=== PATIENT | male | born 1935 | race Caucasian/White ===

== ENCOUNTER → 2017-08-19 06:47 | Emergency (ER) | payer MEDICARE ==
[~2017-08-19 06:47] MED LIST: Dexamethasone IV* 4 MG/ML 1 ML (4 MG) IV SLOW PU ONE; HYDROcodone/ACETAMIN 5-325 MG* 1 TAB PO ONE; NS 0.9% 1000 ML* 500 ML IV ONE
[2017-08-19 06:52] VITALS: BP 132/82
[2017-08-19 08:15] LABS: Hematocrit 43 % (42-52); Hemoglobin 14.9 g/dl (14.0-18.0); Mean Corpuscular HGB Conc 35 g/dl (31-36); Mean Corpuscular Hemoglobin 32 pg (27-31); Mean Corpuscular Volume 94 fL (80-94); Mean Platelet Volume 9 um3 (7.4-10.4); Red Blood Count 4.63 10^6/ul (4.0-5.4); Red Cell Distribution Width 14 % (10.5-15)
--- NOTE | 2017-08-19 08:23 | RAD ---
Indication: LEFT ankle and foot pain post fall 5 days ago. History of gout. Comparison: No relevant prior exams available on the [facility] PACS for comparison. Technique: AP and lateral views LEFT ankle. AP, lateral, and oblique views LEFT foot. Report: Negative for fracture or dislocation. Normal articular alignment at the ankle and foot. Periarticular osseous erosion at the medial margin of the head of the first metatarsal with mild overlying soft tissue swelling corresponding with history of gout. Peripheral vascular calcifications. Mild nonfocal soft tissue swelling about the ankle and foot. IMPRESSION: 1. Negative for fracture or articular malalignment. 2. 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 3. Peripheral vascular disease. 4. Nonspecific nonfocal mild soft tissue swelling.
--- NOTE | 2017-08-19 08:23 | RAD ---
Indication: LEFT ankle and foot pain post fall 5 days ago. History of gout. Comparison: No relevant prior exams available on the [facility] PACS for comparison. Technique: AP and lateral views LEFT ankle. AP, lateral, and oblique views LEFT foot. Report: Negative for fracture or dislocation. Normal articular alignment at the ankle and foot. Periarticular osseous erosion at the medial margin of the head of the first metatarsal with mild overlying soft tissue swelling corresponding with history of gout. Peripheral vascular calcifications. Mild nonfocal soft tissue swelling about the ankle and foot. IMPRESSION: 1. Negative for fracture or articular malalignment. 2. 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 3. Peripheral vascular disease. 4. Nonspecific nonfocal mild soft tissue swelling.
[2017-08-19 08:34] LABS: Albumin 3.6 g/dL (3.2-5.2); BUN/Creatinine Ratio 15.8 (8-20); C Reactive Protein 121.46 mg/L (< 5.00); EGFR African American 74.5 (>60); Globulin 3.6 g/dL (2-4); Potassium 4.1 mmol/L (3.5-5.0); Total Protein 7.2 g/dL (6.4-8.9)
--- NOTE | 2017-08-20 18:47 | ED ---
Abdi Vela Thomas, scribed for Ronen Ch MD on 08/19/17 at 0741 . Complex/Multi-Sys Presentation - HPI Summary HPI Summary: The pt is a 82 y/o M presenting to the ED c/o s/p a fall that occurred today at 03:30. The patient was walking to his kitchen when he had an accidental fall described as both knees gave out. He denies head trauma, head pain, neck pain , and LOC. Pt additionally c/o a L foot pain (since four days ago and attributed to gout) and a cough. The pain is aggravated by touch and is alleviated by nothing. The patient has treated the pain with nothing [employer]. The patient uses a walker and cane to get around. - History Of Current Complaint Chief Complaint: EDExtremityLower Time Seen by Provider: 08/19/17 07:20 Hx Obtained From: Patient Onset/Duration: Sudden Onset, Lasting Hours - onset of pain today at 03:30, Still Present Character: Unable To Describe - similar to previous episodes of gout Aggravating Factor(s): Touch Alleviating Factor(s): Nothing Associated Signs And Symptoms: Positive: Other - Fall, L foot pain; NEGATIVE: head trauma, head pain, neck pain, LOC Related History: Other - Accidental fall today at 03:30 PMH/Surg Hx/FS Hx/Imm Hx Previously Healthy: No - Hx Gout Endocrine/Hematology History: Reports: Other Endocrine/Hematological Disorders Cardiovascular History: Reports: Hx Hypertension, Hx Myocardial Infarction - Surgical History Surgery Procedure, Year, and Place: coronary stent, ICD Infectious Disease History: No Infectious Disease History: Denies: Traveled Outside the [place] in Last 30 Days - Family History Known Family History: Positive: Other - Gout - Social History Alcohol Use: None Hx Substance Use: Yes Substance Use Type: Reports: Prescribed Hx Tobacco Use: Yes Smoking Status (MU): Former Smoker Review of Systems Negative: Fever Positive: Other - L foot pain (onset s/p fall today at 03:30); NEGATIVE: neck pain Neurological: Other - NEGATIVE: LOC, head trauma All Other Systems Reviewed And Are Negative: Yes Physical Exam - Summary Physical Exam Summary: VITAL SIGNS: Reviewed. GENERAL: Patient is a well-developed and nourished male who is lying comfortable in the stretcher. Patient is not in any acute respiratory distress. HEAD AND FACE: No signs of trauma. No ecchymosis, hematomas or skull depressions. No sinus tenderness. EYES: PERRLA, EOMI x 2, No injected conjunctiva, no nystagmus. EARS: Hearing grossly intact. Ear canals and tympanic membranes are within normal limits. MOUTH: Oropharynx within normal limits. NECK: Supple, trachea is midline, no adenopathy, no JVD, no carotid bruit, no c- spine tenderness, neck with full ROM. CHEST: Symmetric, no tenderness at palpation LUNGS: Clear to auscultation bilaterally. No wheezing or crackles. CVS: Regular rate and rhythm, S1 and S2 present, no murmurs or gallops appreciated. ABDOMEN: Soft, non-tender. No signs of distention. No rebound no guarding, and no masses palpated. Bowel sounds are normal. EXTREMITIES: FROM in all major joints, no cyanosis or clubbing. There is LLE swelling and pain. There is point tenderness in the left first metatarsal. NEURO: Alert and oriented x 3. No acute neurological deficits. Speech is normal and follows commands. SKIN: Dry and warm. 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 Triage Information Reviewed: Yes Vital Signs On Initial Exam: Initial Vitals Temp Pulse Resp BP Pulse Ox 97.8 F 82 20 132/82 100 08/19/17 06:49 08/19/17 06:49 08/19/17 06:49 08/19/17 06:49 08/19/17 06:49 Vital Signs Reviewed: Yes - [place] Coma Scale Coma Scale Total: 15 Diagnostics - Vital Signs Vital Signs Temp Pulse Resp BP Pulse Ox 08/19/17 06:49 97.8 F 82 20 132/82 100 - Laboratory Result Diagrams: 08/19/17 08:00 08/19/17 08:00 Lab Statement: Any lab studies that have been ordered have been reviewed, and results considered in the medical decision making process. - Radiology Foot XR Xray Interpretation: No Acute Changes - Foot XR 1. Negative for fracture or articular malalignment. 2. 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 3. Peripheral vascular disease. 4. Nonspecific nonfocal mild soft tissue swelling. ED physician has reviewed this report and agrees. Radiology Interpretation Completed By: Radiologist Ankle XR Xray Interpretation: No Acute Changes - Ankle XR 1. Negative for fracture or articular malalignment. 2. 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 3. Peripheral vascular disease. 4. Nonspecific nonfocal mild soft tissue swelling. ED physician has reviewed this report and agrees. Radiology Interpretation Completed By: Radiologist Jose Multi-Symp Course/Dx Assessment/Plan: The pt is a 82 y/o M presenting to the ED c/o s/p a fall that occurred today at 03:30. The patient was walking to his kitchen when he had an accidental fall described as both knees gave out. He denies head trauma, head pain, neck pain, and LOC. Pt additionally c/o a L foot pain (since four days ago and attributed to gout) and a cough. The pain is aggravated by touch and is alleviated by nothing. The patient has treated the pain with nothing [employer]. The patient uses a walker and cane to get around. Test results are without significant abnormality except WBC 12, creatinine 1.2, and CRP 121. Foot and Ankle XR shows 1. Negative for fracture or articular malalignment. 2. 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 3. Peripheral vascular disease. 4. Nonspecific nonfocal mild soft tissue swelling. ED physician has reviewed these reports and agrees. Therefore, I believe the patient is having a gout exacerbation. I have low suspicion for infection. I gave the patient Decadron and [place] and the patients pain decreased to 1/10. The patient is able to ambulate. At this point, I discussed the test results and findings with the patient and the need to follow up with primary care. The patient is hemodynamically stable and alert and oriented x 3. - Diagnoses Provider Diagnoses: Exacerbation of gout Discharge - Discharge Plan Condition: Stable Disposition: HOME Prescriptions: methylPREDNISolone TAB* [Medrol TAB*] 4 mg PO DAILY #1 gareth Patient Education Materials: Gout (ED) Referrals: Pieter Pagan MD [Primary Care Provider] - 3 Days Additional Instructions: Follow up with your primary care provider in 2-3 days. Return to the emergency department for any new or worsening symptoms. The documentation as recorded by the Abdi harding Thomas accurately reflects the service I personally performed and the decisions made by , Ronen Ch MD.
== END | disposition home or self-care (01) ==
LOC: ED 06:47
DX: M10.9 Gout, unspecified (principal); M79.672 Pain in left foot; R05 Cough; Z87.891 Personal history of nicotine dependence
CPT/HCPCS: 36415; 80053; 85025; 86140; 96374; 99282; J1100

== ENCOUNTER 2021-08-24 10:31 | Inpatient (IN) ==
[2021-08-24] MEDS ORDERED: Morphine 4 MG/ML VIAL (1 ml) IV ONE ×3 (10:57→13:57)
[2021-08-24] MEDS: Lactated Ringers 1000 ml BAG 1,000 ML IV SCH (11:05)
[2021-08-24] MEDS ORDERED: Morphine 2 MG/ML SYRINGE IV ONE (12:08)
[2021-08-24 12:38] LABS: ABS Basophils 0.1 10^3/ul (0-0.2); ABS Eosinophils 0.1 10^3/ul (0-0.6); ABS Monocytes 0.6 10^3/ul (0-0.8); ABS Neutrophils 8.3 10^3/ul (1.5-7.7); Eosinophil % 0.9 %; Hematocrit 40 % (42-52); Hemoglobin 13.9 g/dL (14.0-18.0); Mean Corpuscular HGB Conc 35 g/dL (31-36); Mean Corpuscular Hemoglobin 32 pg (27-31); Mean Corpuscular Volume 92 fL (80-94); Mean Platelet Volume 9.2 fL (7.4-10.4); Nucleated Red Blood Cells % 0.1; Platelet Count 154 10^3/uL (150-450); Red Blood Count 4.39 10^6 /uL (4.18-5.48); Red Cell Distribution Width 16 % (10-15)
[2021-08-24 12:57] LABS: ALT 13 U/L (7-52); Albumin 3.7 g/dL (3.2-5.2); Albumin/Globulin Ratio 1.3 (1-3); Alkaline Phosphatase 78 U/L (35-149); Blood Urea Nitrogen 21 mg/dL (6-24); CO2 Carbon Dioxide 26 mmol/L (22-32); Calcium 9.1 mg/dL (8.6-10.3); Chloride 100 mmol/L (101-111); Globulin 2.8 g/dL (2-4); Glucose 117 mg/dL (70-100); Sodium 133 mmol/L (135-145); Total Protein 6.5 g/dL (6.4-8.9)
[2021-08-24 13:05] LABS: Troponin I 0.13 ng/mL (<0.03)
[2021-08-24 13:21] LABS: Anion Gap 7 mmol/L (2-11)
[2021-08-24 13:39] LABS: TSH Ultra Thyroid Stim Horm 1.69 mcIU/mL (0.34-5.60)
[2021-08-24 14:12] LABS: Rapid COVID-19 Molecular Undetected (Undetected)
[2021-08-24] MEDS: Carboxymethylcellulos 1% OPTH 1 AMP BOTH EYES SCH ×2 (18:04→23:30)
[2021-08-24] MEDS: Morphine 2 MG/ML SYRINGE IV PRN (18:38)
[2021-08-24 19:32] LABS: Potassium Redraw 4.6 mmol/L (3.5-5.0)
[2021-08-24 19:39] LABS: Troponin I 0.21 ng/mL (<0.03)
[2021-08-24] MEDS ORDERED: Enoxaparin 80 MG/0.8 ML SYR SUBCUT SCH (20:00)
[2021-08-24 22:19] LABS: Troponin I 0.23 ng/mL (<0.03)
[2021-08-25] MEDS: Morphine 2 MG/ML SYRINGE IV PRN ×3 (00:06→08:30)
[2021-08-25] MEDS: Lactated Ringers 1000 ml BAG 1,000 ML IV SCH ×2 (00:15→08:25)
[2021-08-25 01:45] LABS: Troponin I 0.25 ng/mL (<0.03)
[2021-08-25] MEDS: CROMOLYN INTRANASAL SCH ×2 (03:22→10:06)
[2021-08-25] MEDS: Enoxaparin 80 MG/0.8 ML SYR SUBCUT SCH ×2 (04:42→17:48)
[2021-08-25 05:37] LABS: Troponin I 0.25 ng/mL (<0.03)
[2021-08-25 06:07] LABS: Anion Gap 7 mmol/L (2-11); Blood Urea Nitrogen 20 mg/dL (6-24); CO2 Carbon Dioxide 26 mmol/L (22-32); Calcium 8.6 mg/dL (8.6-10.3); Chloride 101 mmol/L (101-111); Glucose 142 mg/dL (70-100); Potassium 4.6 mmol/L (3.5-5.0); Sodium 134 mmol/L (135-145)
[2021-08-25] MEDS: Carboxymethylcellulos 1% OPTH 1 AMP BOTH EYES SCH ×2 (10:03→13:37)
[2021-08-25] MEDS: Cholecalciferol (VIT D3) 1,000 unit TAB PO SCH (10:04)
[2021-08-25] MEDS ORDERED: Acetaminophen IV 1 GM/100ML 100 ML IV PRN (11:09)
[2021-08-25 11:44] LABS: Urine Appearance Clear; Urine Bilirubin Negative (Negative); Urine Blood Negative (Negative); Urine Color Yellow; Urine Glucose Negative (Negative); Urine Ketones Negative (Negative); Urine Nitrite Negative (Negative); Urine Protein Negative (Negative); Urine Specific Gravity 1.012 (1.002-1.030); Urine Urobilinogen Negative (Negative)
[2021-08-25 12:39] LABS: INR 1.6 (0.86-1.15)
[2021-08-25] MEDS: Dextran 70/Hypromellose Tears Eye Drops 15 ml BTL (for Artificials Tears) BOTH EYES SCH ×2 (17:51→22:16)
[2021-08-26] MEDS: CROMOLYN INTRANASAL SCH ×3 (02:21→23:27)
[2021-08-26] MEDS: Enoxaparin 80 MG/0.8 ML SYR SUBCUT SCH ×2 (07:52→17:31)
[2021-08-26] MEDS: Dextran 70/Hypromellose Tears Eye Drops 15 ml BTL (for Artificials Tears) BOTH EYES SCH ×4 (08:39→23:26)
[2021-08-26] MEDS: Cholecalciferol (VIT D3) 1,000 unit TAB PO SCH (08:40)
[2021-08-26 08:46] LABS: Calcium 9.1 mg/dL (8.6-10.3); Potassium 4.3 mmol/L (3.5-5.0)
[2021-08-26 08:53] LABS: Hematocrit 39 % (42-52); Hemoglobin 13.5 g/dL (14.0-18.0); Mean Corpuscular HGB Conc 34 g/dL (31-36); Mean Corpuscular Hemoglobin 32 pg (27-31); Mean Corpuscular Volume 92 fL (80-94); Mean Platelet Volume 9.9 fL (7.4-10.4); Platelet Count 126 10^3/uL (150-450); Red Blood Count 4.23 10^6 /uL (4.18-5.48); Red Cell Distribution Width 17 % (10-15); White Blood Count 10.5 10^3/uL (3.5-10.8)
[2021-08-27] MEDS: Enoxaparin 80 MG/0.8 ML SYR SUBCUT SCH ×2 (05:27→18:38)
[2021-08-27 07:28] LABS: ABS Eosinophils 0.2 10^3/ul (0-0.6); ABS Lymphocytes 0.8 10^3/ul (1.0-4.8); ABS Monocytes 1.1 10^3/ul (0-0.8); ABS Neutrophils 6.6 10^3/ul (1.5-7.7); Eosinophil % 2.8 %; Hematocrit 34 % (42-52); Hemoglobin 11.9 g/dL (14.0-18.0); Lymphocyte % 8.6 %; Mean Corpuscular HGB Conc 35 g/dL (31-36); Mean Corpuscular Hemoglobin 32 pg (27-31); Mean Corpuscular Volume 92 fL (80-94); Mean Platelet Volume 9.5 fL (7.4-10.4); Platelet Count 112 10^3/uL (150-450); Red Blood Count 3.71 10^6 /uL (4.18-5.48); Red Cell Distribution Width 17 % (10-15); White Blood Count 8.7 10^3/uL (3.5-10.8)
[2021-08-27 07:34] LABS: INR 1.49 (0.86-1.15)
[2021-08-27 07:38] LABS: Calcium 8.3 mg/dL (8.6-10.3); Potassium 4.4 mmol/L (3.5-5.0)
[2021-08-27] MEDS: Morphine 2 MG/ML SYRINGE IV PRN ×3 (07:55→22:32)
[2021-08-27] MEDS ORDERED: Polyethylene Glycol 3350 17 GM PACKET PO PRN (08:38)
[2021-08-27] MEDS ORDERED: Magnesium Hydroxide LIQ 30 ML UDC PO ONE (08:39)
[2021-08-27] MEDS: Dextrose 50% Syringe 50 ml 25 GM/50 ML SYRINGE IV PUSH PRN (09:55)
[2021-08-27] MEDS: Cholecalciferol (VIT D3) 1,000 unit TAB PO SCH (12:32)
[2021-08-27] MEDS: CROMOLYN INTRANASAL SCH ×2 (12:32→22:34)
[2021-08-27] MEDS ORDERED: Regadenoson 0.4 MG/5 ML SYRINGE ONE (14:01)
[2021-08-27] MEDS: Dextran 70/Hypromellose Tears Eye Drops 15 ml BTL (for Artificials Tears) BOTH EYES SCH ×3 (14:39→22:34)
[2021-08-27] MEDS ORDERED: cefTRIAXone 1 gm/50 mL NS BAG 1 GM/50 ML BAG IV ONE (16:23)
[2021-08-27] MEDS ORDERED: Azithromycin 500 mg/250 ml NS 500 MG/250 ML BAG IVPB ONE (16:23)
[2021-08-28 05:51] LABS: ABS Eosinophils 0.1 10^3/ul (0-0.6); ABS Lymphocytes 0.8 10^3/ul (1.0-4.8); ABS Monocytes 1.2 10^3/ul (0-0.8); ABS Neutrophils 6.5 10^3/ul (1.5-7.7); Eosinophil % 0.9 %; Hematocrit 32 % (42-52); Hemoglobin 10.7 g/dL (14.0-18.0); Lymphocyte % 9.6 %; Mean Corpuscular HGB Conc 34 g/dL (31-36); Mean Corpuscular Hemoglobin 32 pg (27-31); Mean Corpuscular Volume 93 fL (80-94); Mean Platelet Volume 9.8 fL (7.4-10.4); Nucleated Red Blood Cells % 0.1; Platelet Count 124 10^3/uL (150-450); Red Blood Count 3.41 10^6 /uL (4.18-5.48); Red Cell Distribution Width 17 % (10-15); White Blood Count 8.6 10^3/uL (3.5-10.8)
[2021-08-28 06:05] LABS: INR 1.43 (0.86-1.15)
[2021-08-28 06:26] LABS: Calcium 8.4 mg/dL (8.6-10.3)
[2021-08-28 06:28] LABS: Potassium 5.2 mmol/L (3.5-5.0)
[2021-08-28] MEDS: Dextrose 50% Syringe 50 ml 25 GM/50 ML SYRINGE IV PUSH PRN (08:37)
[2021-08-28] MEDS ORDERED: Albuterol/Ipratropium NEB.SOL (2.5/0.5 MG) 3 ML NEB.SOLN INH PRN (09:56)
[2021-08-28] MEDS: CROMOLYN INTRANASAL SCH ×2 (10:02→23:39)
[2021-08-28 10:23] LABS: Calcium 8.4 mg/dL (8.6-10.3); INR 1.37 (0.86-1.15); Potassium 4.3 mmol/L (3.5-5.0)
[2021-08-28] MEDS: Cholecalciferol (VIT D3) 1,000 unit TAB PO SCH (11:11)
[2021-08-28] MEDS: Dextran 70/Hypromellose Tears Eye Drops 15 ml BTL (for Artificials Tears) BOTH EYES SCH ×3 (11:12→22:58)
[2021-08-28] MEDS ORDERED: fentaNYL 100 mcg/2 ml 50 MCG/ML VIAL ONE (11:33)
[2021-08-28] MEDS ORDERED: Midazolam 2 mg/2 ml VIAL 1 mg/ml 2 ml VIAL (2 mg) ONE (11:33)
[2021-08-28] MEDS ORDERED: Buffered Lidocaine 1% SYRIN 1 ml INTRADERM ONE (13:20)
[2021-08-28] MEDS ORDERED: Lactated Ringers 1000 ml BAG 1,000 ML IV SCH (14:00)
[2021-08-28] MEDS ORDERED: ceFAZolin 2 GM in NS PREMIX 2 GM/100 ML BAG IVPB ONE (14:11)
[2021-08-28 14:31] LABS: Vitamin D Total 25(OH) 29.3 ng/mL (20-50)
[2021-08-28] MEDS ORDERED: Bupivacaine 0.5% SDV PF 30ML VIAL ONE (15:13)
[2021-08-28] MEDS ORDERED: fentaNYL 250 mcg/5 ml 50 MCG/ML 5 ml VIAL (250 MCG) ONE (15:16)
[2021-08-28] MEDS ORDERED: Propofol 10 MG/ML 20 ML BTL ONE (15:17)
[2021-08-28] MEDS ORDERED: Rocuronium 50 mg VIAL 10 mg/ml 5 ml VIAL (50 mg) ONE (15:18)
[2021-08-28] MEDS ORDERED: EPHEDrine (Pressors) 50 MG/ML VIAL ONE (15:19)
[2021-08-28] MEDS ORDERED: Sterile Water for Inj 10 ML ONE (15:19)
[2021-08-28] MEDS ORDERED: Lidocaine 2% PF 5 ML VIAL ONE (15:26)
[2021-08-28] MEDS ORDERED: HYDROmorphone 1 MG/1 ML SYRINGE ONE (17:12)
[2021-08-28] MEDS ORDERED: Dexamethasone IV 4 MG/ML VIAL 1 ml VIAL ONE (17:19)
[2021-08-28] MEDS ORDERED: HYDROmorphone 1 MG/1 ML SYRINGE IV PRN (18:02)
[2021-08-28] MEDS ORDERED: Acetaminophen IV 1 GM/100 ML BAG IV ONE (18:02)
[2021-08-28] MEDS ORDERED: Naloxone 0.4 mg VIAL 0.4 mg/ml 1 ml VIAL IV PRN (18:02)
[2021-08-28] MEDS ORDERED: Prochlorperazine 5 mg/ml 2 ml VIAL (10 mg) IV PRN (18:02)
[2021-08-28] MEDS ORDERED: diPHENhydraMINE IV 50 MG/ML 1 ml VIAL (BENADRYL) IV PRN (18:02)
[2021-08-28 18:21] LABS: Hematocrit 31 % (42-52); Hemoglobin 10.8 g/dL (14.0-18.0); Mean Corpuscular HGB Conc 35 g/dL (31-36); Mean Corpuscular Hemoglobin 32 pg (27-31); Mean Corpuscular Volume 92 fL (80-94); Mean Platelet Volume 9.2 fL (7.4-10.4); Platelet Count 129 10^3/uL (150-450); Red Blood Count 3.37 10^6 /uL (4.18-5.48); Red Cell Distribution Width 16 % (10-15); White Blood Count 7.5 10^3/uL (3.5-10.8)
[2021-08-28] MEDS ORDERED: Acetaminophen IV 1 GM/100ML 100 ML IV ONE (18:40)
[2021-08-28] MEDS ORDERED: NS 0.9% 1,000 ML IV SCH (22:30)
[2021-08-28] MEDS: cefTRIAXone 1 gm/50 mL NS BAG 1 GM/50 ML BAG IVPB SCH (22:35)
[2021-08-29] MEDS: ceFAZolin 1 GM X 3 DOSES POST-OP Q8H (AddVan) IVPB SCH ×3 (00:47→16:31)
[2021-08-29 05:45] LABS: ABS Lymphocytes 0.4 10^3/ul (1.0-4.8); ABS Monocytes 0.6 10^3/ul (0-0.8); ABS Neutrophils 7.1 10^3/ul (1.5-7.7); Hematocrit 32 % (42-52); Hemoglobin 10.7 g/dL (14.0-18.0); Lymphocyte % 4.5 %; Mean Corpuscular HGB Conc 34 g/dL (31-36); Mean Corpuscular Hemoglobin 32 pg (27-31); Mean Corpuscular Volume 93 fL (80-94); Mean Platelet Volume 9.3 fL (7.4-10.4); Nucleated Red Blood Cells % 0.1; Platelet Count 133 10^3/uL (150-450); Red Blood Count 3.41 10^6 /uL (4.18-5.48); Red Cell Distribution Width 16 % (10-15)
[2021-08-29 05:59] LABS: Albumin 2.9 g/dL (3.2-5.2); Calcium 7.9 mg/dL (8.6-10.3); Potassium 4.8 mmol/L (3.5-5.0); Total Bilirubin 0.8 mg/dL (0.2-1.0); Total Protein 5.9 g/dL (6.4-8.9)
[2021-08-29] MEDS: Cholecalciferol (VIT D3) 1,000 unit TAB PO SCH (08:43)
[2021-08-29] MEDS: Dextran 70/Hypromellose Tears Eye Drops 15 ml BTL (for Artificials Tears) BOTH EYES SCH ×4 (10:27→20:55)
[2021-08-29] MEDS: CROMOLYN INTRANASAL SCH (10:27)
[2021-08-29] MEDS: Aspirin EC 81 mg TAB.EC (enteric coated) PO SCH (12:02)
[2021-08-29] MEDS: cefTRIAXone 1 gm/50 mL NS BAG 1 GM/50 ML BAG IVPB SCH (14:26)
[2021-08-29] MEDS: Senna TAB 8.6 mg TAB PO PRN (14:26)
[2021-08-30 07:03] LABS: Hematocrit 32 % (42-52); Hemoglobin 10.5 g/dL (14.0-18.0); Mean Corpuscular HGB Conc 33 g/dL (31-36); Mean Corpuscular Hemoglobin 31 pg (27-31); Mean Corpuscular Volume 93 fL (80-94); Platelet Count 201 10^3/uL (150-450); Red Blood Count 3.41 10^6 /uL (4.18-5.48); Red Cell Distribution Width 17 % (10-15); White Blood Count 12.9 10^3/uL (3.5-10.8)
[2021-08-30 07:20] LABS: Calcium 7.9 mg/dL (8.6-10.3); Potassium 4.5 mmol/L (3.5-5.0)
[2021-08-30] MEDS: Aspirin EC 81 mg TAB.EC (enteric coated) PO SCH (10:21)
[2021-08-30] MEDS: Cholecalciferol (VIT D3) 1,000 unit TAB PO SCH (10:22)
[2021-08-30 10:25] LABS: Magnesium 2.4 mg/dL (1.9-2.7)
[2021-08-30] MEDS: Dextran 70/Hypromellose Tears Eye Drops 15 ml BTL (for Artificials Tears) BOTH EYES SCH ×4 (10:47→21:22)
[2021-08-30] MEDS: cefTRIAXone 1 gm/50 mL NS BAG 1 GM/50 ML BAG IVPB SCH (15:03)
[2021-08-30] MEDS: Senna TAB 8.6 mg TAB PO PRN (15:04)
[2021-08-31 06:10] LABS: ABS Lymphocytes 1.4 10^3/ul (1.0-4.8); ABS Monocytes 1.4 10^3/ul (0-0.8); ABS Neutrophils 8.7 10^3/ul (1.5-7.7); Eosinophil % 0.3 %; Hematocrit 33 % (42-52); Lymphocyte % 11.9 %; Mean Corpuscular HGB Conc 33 g/dL (31-36); Mean Corpuscular Hemoglobin 31 pg (27-31); Mean Corpuscular Volume 94 fL (80-94); Mean Platelet Volume 8.7 fL (7.4-10.4); Platelet Count 235 10^3/uL (150-450); Red Blood Count 3.53 10^6 /uL (4.18-5.48); Red Cell Distribution Width 17 % (10-15); White Blood Count 11.6 10^3/uL (3.5-10.8)
[2021-08-31 06:27] LABS: Calcium 8.1 mg/dL (8.6-10.3); Magnesium 2.4 mg/dL (1.9-2.7); Potassium 4.7 mmol/L (3.5-5.0)
[2021-08-31] MEDS: Aspirin EC 81 mg TAB.EC (enteric coated) PO SCH (09:40)
[2021-08-31] MEDS: Cholecalciferol (VIT D3) 1,000 unit TAB PO SCH (09:41)
[2021-08-31] MEDS: HYDROcodone/ACETAMIN 5/325 mg TAB PO PRN ×2 (09:41→19:52)
[2021-08-31] MEDS: Dextran 70/Hypromellose Tears Eye Drops 15 ml BTL (for Artificials Tears) BOTH EYES SCH ×4 (09:44→19:53)
[2021-08-31] MEDS: cefTRIAXone 1 gm/50 mL NS BAG 1 GM/50 ML BAG IVPB SCH (15:42)
[2021-09-01 05:49] LABS: ABS Eosinophils 0.1 10^3/ul (0-0.6); ABS Monocytes 0.8 10^3/ul (0-0.8); ABS Neutrophils 7.5 10^3/ul (1.5-7.7); Hematocrit 33 % (42-52); Hemoglobin 11.2 g/dL (14.0-18.0); Lymphocyte % 10.9 %; Mean Corpuscular HGB Conc 34 g/dL (31-36); Mean Corpuscular Hemoglobin 32 pg (27-31); Mean Corpuscular Volume 93 fL (80-94); Mean Platelet Volume 8.6 fL (7.4-10.4); Nucleated Red Blood Cells % 0.3; Platelet Count 213 10^3/uL (150-450); Red Blood Count 3.51 10^6 /uL (4.18-5.48); Red Cell Distribution Width 17 % (10-15); White Blood Count 9.5 10^3/uL (3.5-10.8)
[2021-09-01 06:04] LABS: Calcium 8.2 mg/dL (8.6-10.3); Magnesium 2.4 mg/dL (1.9-2.7); Potassium 4.9 mmol/L (3.5-5.0)
[2021-09-01] MEDS ORDERED: Polyethylene Glycol 3350 17 GM PACKET PO PRN (09:21)
[2021-09-01] MEDS: Aspirin EC 81 mg TAB.EC (enteric coated) PO SCH (10:03)
[2021-09-01] MEDS: Cholecalciferol (VIT D3) 1,000 unit TAB PO SCH (10:03)
[2021-09-01] MEDS: Dextran 70/Hypromellose Tears Eye Drops 15 ml BTL (for Artificials Tears) BOTH EYES SCH ×4 (10:06→21:01)
[2021-09-02 06:53] LABS: ABS Basophils 0.1 10^3/ul (0-0.2); ABS Eosinophils 0.3 10^3/ul (0-0.6); ABS Lymphocytes 1.1 10^3/ul (1.0-4.8); ABS Monocytes 0.8 10^3/ul (0-0.8); ABS Neutrophils 7.5 10^3/ul (1.5-7.7); Eosinophil % 3.1 %; Hematocrit 36 % (42-52); Hemoglobin 12.2 g/dL (14.0-18.0); Lymphocyte % 11.6 %; Mean Corpuscular HGB Conc 34 g/dL (31-36); Mean Corpuscular Hemoglobin 32 pg (27-31); Mean Corpuscular Volume 94 fL (80-94); Mean Platelet Volume 8.2 fL (7.4-10.4); Nucleated Red Blood Cells % 0.1; Platelet Count 254 10^3/uL (150-450); Red Blood Count 3.83 10^6 /uL (4.18-5.48); Red Cell Distribution Width 17 % (10-15); White Blood Count 9.9 10^3/uL (3.5-10.8)
[2021-09-02 07:10] LABS: Calcium 8.5 mg/dL (8.6-10.3); Magnesium 2.1 mg/dL (1.9-2.7); Potassium 4.6 mmol/L (3.5-5.0)
[2021-09-02] MEDS ORDERED: Magnesium Hydroxide LIQ 30 ML UDC PO PRN (08:48)
[2021-09-02] MEDS: Cholecalciferol (VIT D3) 1,000 unit TAB PO SCH (09:36)
[2021-09-02] MEDS: Aspirin EC 81 mg TAB.EC (enteric coated) PO SCH (09:36)
[2021-09-02] MEDS: Dextran 70/Hypromellose Tears Eye Drops 15 ml BTL (for Artificials Tears) BOTH EYES SCH ×4 (09:39→20:27)
[2021-09-03 06:57] LABS: ABS Eosinophils 0.3 10^3/ul (0-0.6); ABS Lymphocytes 1.1 10^3/ul (1.0-4.8); ABS Monocytes 0.9 10^3/ul (0-0.8); ABS Neutrophils 6.6 10^3/ul (1.5-7.7); Hematocrit 36 % (42-52); Hemoglobin 12.2 g/dL (14.0-18.0); Lymphocyte % 12.8 %; Mean Corpuscular HGB Conc 34 g/dL (31-36); Mean Corpuscular Hemoglobin 32 pg (27-31); Mean Corpuscular Volume 94 fL (80-94); Mean Platelet Volume 8.6 fL (7.4-10.4); Nucleated Red Blood Cells % 0.1; Platelet Count 278 10^3/uL (150-450); Red Blood Count 3.82 10^6 /uL (4.18-5.48); Red Cell Distribution Width 17 % (10-15); White Blood Count 8.9 10^3/uL (3.5-10.8)
[2021-09-03 07:16] LABS: Calcium 8.4 mg/dL (8.6-10.3); Magnesium 2.1 mg/dL (1.9-2.7); Potassium 4.6 mmol/L (3.5-5.0)
[2021-09-03] MEDS: Aspirin EC 81 mg TAB.EC (enteric coated) PO SCH (10:02)
[2021-09-03] MEDS: Cholecalciferol (VIT D3) 1,000 unit TAB PO SCH (10:03)
[2021-09-03] MEDS: Dextran 70/Hypromellose Tears Eye Drops 15 ml BTL (for Artificials Tears) BOTH EYES SCH ×4 (10:03→20:47)
[2021-09-04 06:31] LABS: ABS Basophils 0.1 10^3/ul (0-0.2); ABS Eosinophils 0.3 10^3/ul (0-0.6); ABS Lymphocytes 1.4 10^3/ul (1.0-4.8); ABS Neutrophils 7.9 10^3/ul (1.5-7.7); Eosinophil % 3.2 %; Hematocrit 37 % (42-52); Hemoglobin 12.6 g/dL (14.0-18.0); Lymphocyte % 12.7 %; Mean Corpuscular HGB Conc 35 g/dL (31-36); Mean Corpuscular Hemoglobin 32 pg (27-31); Mean Corpuscular Volume 92 fL (80-94); Mean Platelet Volume 8.2 fL (7.4-10.4); Nucleated Red Blood Cells % 0.1; Platelet Count 303 10^3/uL (150-450); Red Blood Count 3.95 10^6 /uL (4.18-5.48); Red Cell Distribution Width 17 % (10-15); White Blood Count 10.6 10^3/uL (3.5-10.8)
[2021-09-04 06:41] LABS: Calcium 8.6 mg/dL (8.6-10.3); Potassium 4.5 mmol/L (3.5-5.0)
[2021-09-04 08:22] VITALS: BP 112/77
[2021-09-04] MEDS: Aspirin EC 81 mg TAB.EC (enteric coated) PO SCH (08:52)
[2021-09-04] MEDS: Cholecalciferol (VIT D3) 1,000 unit TAB PO SCH (08:52)
[2021-09-04] MEDS: Dextran 70/Hypromellose Tears Eye Drops 15 ml BTL (for Artificials Tears) BOTH EYES SCH (08:53)
== END 2021-09-04 09:30 | DRG 521 ==
LOC: ED 10:31 → SSU 17:46 → SUATTDRO 17:46 → SSU 17:47
PROVIDERS: ADMIT Internal Medicine; ATTEND Student in an Organized Health Care Education/Training Program

== ENCOUNTER 2021-09-04 08:15 | Inpatient (IN) ==
[2021-09-04] MEDS ORDERED: Dextrose 50% Syringe 50 ml 25 GM/50 ML SYRINGE IV PUSH PRN (13:16)
[2021-09-04] MEDS: Magnesium Hydroxide LIQ 30 ML UDC PO PRN (14:31)
[2021-09-04] MEDS ORDERED: Sodium Phosphate ADULT ENEMA 133 ML BTL PR PRN (15:53)
[2021-09-04] MEDS: Senna TAB 8.6 mg TAB PO PRN (21:01)
[2021-09-05 07:50] LABS: ABS Basophils 0.1 10^3/ul (0-0.2); ABS Eosinophils 0.4 10^3/ul (0-0.6); ABS Lymphocytes 1.1 10^3/ul (1.0-4.8); ABS Neutrophils 6.8 10^3/ul (1.5-7.7); Eosinophil % 3.9 %; Hematocrit 37 % (42-52); Hemoglobin 12.5 g/dL (14.0-18.0); Lymphocyte % 11.8 %; Mean Corpuscular HGB Conc 34 g/dL (31-36); Mean Corpuscular Hemoglobin 32 pg (27-31); Mean Corpuscular Volume 94 fL (80-94); Platelet Count 315 10^3/uL (150-450); Red Blood Count 3.93 10^6 /uL (4.18-5.48); Red Cell Distribution Width 17 % (10-15); White Blood Count 9.3 10^3/uL (3.5-10.8)
[2021-09-05 08:08] LABS: Albumin/Globulin Ratio 0.9 (1-3); Calcium 8.6 mg/dL (8.6-10.3); Globulin 3.2 g/dL (2-4); Potassium 4.5 mmol/L (3.5-5.0); Total Bilirubin 1.3 mg/dL (0.2-1.0); Total Protein 6.2 g/dL (6.4-8.9)
[2021-09-05] MEDS: Aspirin EC 81 mg TAB.EC (enteric coated) PO SCH (10:19)
[2021-09-06] MEDS: Albuterol HFA INHALER 8 gm MDI INH PRN (00:14)
[2021-09-06] MEDS: Aspirin EC 81 mg TAB.EC (enteric coated) PO SCH (09:48)
[2021-09-06] MEDS: Senna TAB 8.6 mg TAB PO PRN (09:48)
[2021-09-06] MEDS: Zinc Oxide 40% (TOPICAL) TUBE TOPICAL SCH (09:49)
[2021-09-07] MEDS: SPIRIVA Respimat (tiotropium) 2.5 mcg/inh Inhaler INH SCH (09:42)
[2021-09-07] MEDS: Aspirin EC 81 mg TAB.EC (enteric coated) PO SCH (09:56)
[2021-09-07] MEDS: Polyethylene Glycol 3350 17 GM PACKET PO SCH (09:57)
[2021-09-07] MEDS: Zinc Oxide 40% (TOPICAL) TUBE TOPICAL SCH (09:57)
[2021-09-08] MEDS: Zinc Oxide 40% (TOPICAL) TUBE TOPICAL SCH (08:28)
[2021-09-08] MEDS: Aspirin EC 81 mg TAB.EC (enteric coated) PO SCH (08:32)
[2021-09-08] MEDS: Polyethylene Glycol 3350 17 GM PACKET PO SCH (08:33)
[2021-09-08] MEDS: SPIRIVA Respimat (tiotropium) 2.5 mcg/inh Inhaler INH SCH (09:04)
[2021-09-08] MEDS: Magnesium Hydroxide LIQ 30 ML UDC PO PRN (18:41)
[2021-09-08] MEDS: HYDROcodone/ACETAMIN 5/325 mg TAB PO PRN (21:21)
[2021-09-09] MEDS: Aspirin EC 81 mg TAB.EC (enteric coated) PO SCH (09:06)
[2021-09-09] MEDS: Polyethylene Glycol 3350 17 GM PACKET PO SCH (09:06)
[2021-09-09] MEDS: SPIRIVA Respimat (tiotropium) 2.5 mcg/inh Inhaler INH SCH (09:11)
[2021-09-09] MEDS: Zinc Oxide 40% (TOPICAL) TUBE TOPICAL SCH (09:13)
[2021-09-09] MEDS ORDERED: Saline NASAL SPRAY 0.65% BTL BOTH NARES PRN (10:02)
[2021-09-09] MEDS: Magnesium Hydroxide LIQ 30 ML UDC PO PRN (19:02)
[2021-09-09] MEDS: Senna TAB 8.6 mg TAB PO PRN (20:50)
[2021-09-10] MEDS: HYDROcodone/ACETAMIN 5/325 mg TAB PO PRN (10:13)
[2021-09-10] MEDS: Aspirin EC 81 mg TAB.EC (enteric coated) PO SCH (10:21)
[2021-09-10] MEDS: Polyethylene Glycol 3350 17 GM PACKET PO SCH (10:25)
[2021-09-10] MEDS: Zinc Oxide 40% (TOPICAL) TUBE TOPICAL SCH (10:25)
[2021-09-10] MEDS: SPIRIVA Respimat (tiotropium) 2.5 mcg/inh Inhaler INH SCH (10:40)
[2021-09-10 14:07] LABS: ABS Lymphocytes 0.5 10^3/ul (1.0-4.8); ABS Monocytes 0.5 10^3/ul (0-0.8); ABS Neutrophils 5.1 10^3/ul (1.5-7.7); Eosinophil % 0.8 %; Hematocrit 37 % (42-52); Hemoglobin 12.4 g/dL (14.0-18.0); Lymphocyte % 8.6 %; Mean Corpuscular HGB Conc 34 g/dL (31-36); Mean Corpuscular Hemoglobin 32 pg (27-31); Mean Corpuscular Volume 93 fL (80-94); Mean Platelet Volume 8.4 fL (7.4-10.4); Nucleated Red Blood Cells % 0.1; Platelet Count 259 10^3/uL (150-450); Red Blood Count 3.92 10^6 /uL (4.18-5.48); Red Cell Distribution Width 16 % (10-15); White Blood Count 6.3 10^3/uL (3.5-10.8)
[2021-09-10] MEDS ORDERED: Ondansetron ODT 4 mg TAB 4 MG TAB PO ONE (22:10)
[2021-09-11] MEDS: Aspirin EC 81 mg TAB.EC (enteric coated) PO SCH (08:52)
[2021-09-11] MEDS: Polyethylene Glycol 3350 17 GM PACKET PO SCH (08:52)
[2021-09-11] MEDS: Zinc Oxide 40% (TOPICAL) TUBE TOPICAL SCH (09:14)
[2021-09-11] MEDS: SPIRIVA Respimat (tiotropium) 2.5 mcg/inh Inhaler INH SCH (11:23)
[2021-09-11] MEDS: Albuterol HFA INHALER 8 gm MDI INH PRN (12:10)
[2021-09-11] MEDS: D5NS 0.9% 1000 ml BAG 1,000 ML IV SCH (17:08)
[2021-09-12] MEDS: D5NS 0.9% 1000 ml BAG 1,000 ML IV SCH (06:00)
[2021-09-12 06:51] LABS: ABS Lymphocytes 0.5 10^3/ul (1.0-4.8); ABS Monocytes 0.3 10^3/ul (0-0.8); Eosinophil % 0.3 %; Hematocrit 36 % (42-52); Hemoglobin 12.2 g/dL (14.0-18.0); Lymphocyte % 8.1 %; Mean Corpuscular HGB Conc 35 g/dL (31-36); Mean Corpuscular Hemoglobin 32 pg (27-31); Mean Corpuscular Volume 92 fL (80-94); Mean Platelet Volume 8.1 fL (7.4-10.4); Platelet Count 222 10^3/uL (150-450); Red Blood Count 3.85 10^6 /uL (4.18-5.48); Red Cell Distribution Width 17 % (10-15); White Blood Count 5.8 10^3/uL (3.5-10.8)
[2021-09-12 07:13] LABS: Albumin 2.8 g/dL (3.2-5.2); Albumin/Globulin Ratio 0.8 (1-3); Calcium 7.9 mg/dL (8.6-10.3); Globulin 3.3 g/dL (2-4); Potassium 3.8 mmol/L (3.5-5.0); Total Protein 6.1 g/dL (6.4-8.9)
[2021-09-12] MEDS: Zinc Oxide 40% (TOPICAL) TUBE TOPICAL SCH (08:42)
[2021-09-12] MEDS: Aspirin EC 81 mg TAB.EC (enteric coated) PO SCH (09:47)
[2021-09-12] MEDS: SPIRIVA Respimat (tiotropium) 2.5 mcg/inh Inhaler INH SCH (09:48)
[2021-09-12] MEDS: Polyethylene Glycol 3350 17 GM PACKET PO SCH (09:48)
[2021-09-12] MEDS ORDERED: Furosemide 20 mg/2 ml IV VIAL IV ONE (14:29)
[2021-09-12] MEDS: Albuterol 2.5mg/3 ml (0.083%) NEB.SOLN INH PRN ×2 (18:04→22:34)
[2021-09-12] MEDS ORDERED: Morphine 2 MG/ML SYRINGE IV PRN (22:59)
[2021-09-13 04:50] VITALS: BP 103/64
[2021-09-13] MEDS: Albuterol 2.5mg/3 ml (0.083%) NEB.SOLN INH PRN (11:05)
[2021-09-13] MEDS: Aspirin EC 81 mg TAB.EC (enteric coated) PO SCH (11:37)
[2021-09-13] MEDS: SPIRIVA Respimat (tiotropium) 2.5 mcg/inh Inhaler INH SCH (11:38)
[2021-09-13] MEDS: Polyethylene Glycol 3350 17 GM PACKET PO SCH (11:38)
[2021-09-13] MEDS: Zinc Oxide 40% (TOPICAL) TUBE TOPICAL SCH (11:39)
[2021-09-13 16:18] LABS: Calcium 8.1 mg/dL (8.6-10.3)
== END 2021-09-13 15:35 | disposition short-term general hospital (02) | DRG 559 ==
LOC: PMRU 09:31
PROVIDERS: ADMIT Physical Medicine & Rehabilitation; ATTEND Physical Medicine & Rehabilitation

== ENCOUNTER 2021-09-13 11:15 | Inpatient (IN) ==
[2021-09-13] MEDS ORDERED: Albuterol 2.5mg/3 ml (0.083%) NEB.SOLN INH PRN (13:00)
[2021-09-13] MEDS ORDERED: Saline NASAL SPRAY 0.65% BTL BOTH NARES PRN (13:00)
[2021-09-13] MEDS ORDERED: Senna TAB 8.6 mg TAB PO PRN (13:00)
[2021-09-13] MEDS ORDERED: Magnesium Hydroxide LIQ 30 ML UDC PO PRN (13:00)
[2021-09-13] MEDS ORDERED: Albuterol HFA INHALER 8 gm MDI INH PRN (13:00)
[2021-09-13] MEDS ORDERED: Dextrose 50% Syringe 50 ml 25 GM/50 ML SYRINGE IV PUSH PRN (13:09)
[2021-09-14] MEDS: SPIRIVA Respimat (tiotropium) 2.5 mcg/inh Inhaler INH SCH (07:22)
[2021-09-14] MEDS: Aspirin EC 81 mg TAB.EC (enteric coated) PO SCH (08:59)
[2021-09-14] MEDS: Polyethylene Glycol 3350 17 GM PACKET PO SCH (09:00)
[2021-09-14 09:15] LABS: C Reactive Protein 149.7 mg/L (<8.01); Calcium 7.9 mg/dL (8.6-10.3); Potassium 4.1 mmol/L (3.5-5.0)
[2021-09-14] MEDS: Zinc Oxide 40% (TOPICAL) TUBE TOPICAL SCH (10:20)
[2021-09-14 10:55] LABS: Rapid COVID-19 Molecular Detected (Undetected)
[2021-09-14] MEDS ORDERED: Zosyn per Pharmacy NOTE FOLLOW UP SCH (11:00)
[2021-09-14] MEDS ORDERED: Piperacillin/Tazobac ADVAN 3.375 GM in NS 0.9% 100 ml BAG 100 ML IV ONE (11:00)
[2021-09-14] MEDS: NS 0.9% 1000 ml BAG 1,000 ML IV SCH (11:44)
[2021-09-14] MEDS ORDERED: Remdesivir 100 mg Vial 200 MG in NS 0.9% 250 ml 210 ML IV ONE (12:30)
[2021-09-14] MEDS: methylPREDNISolone SOD 40 mg/ml 1 ml VIAL IV SCH (13:01)
[2021-09-14 13:42] LABS: Albumin 2.7 g/dL (3.2-5.2); Albumin/Globulin Ratio 0.8 (1-3); Calcium 7.9 mg/dL (8.6-10.3); Globulin 3.4 g/dL (2-4); Potassium 4.2 mmol/L (3.5-5.0); Total Bilirubin 1.4 mg/dL (0.2-1.0); Total Protein 6.1 g/dL (6.4-8.9)
[2021-09-14] MEDS: ZOSYN 3.375 GM Q8H per EXTENDED INFUSION IV SCH (17:07)
[2021-09-14] MEDS: HYDROcodone/ACETAMIN 5/325 mg TAB PO PRN (20:52)
[2021-09-14] MEDS: Famotidine IV 10 MG/ML 2 ml VIAL (20 mg) IV SLOW PU SCH (20:54)
[2021-09-15] MEDS: ZOSYN 3.375 GM Q8H per EXTENDED INFUSION IV SCH ×3 (00:54→17:02)
[2021-09-15 05:47] LABS: ABS Lymphocytes 0.3 10^3/ul (1.0-4.8); ABS Monocytes 0.3 10^3/ul (0-0.8); ABS Neutrophils 3.9 10^3/ul (1.5-7.7); Hematocrit 35 % (42-52); Hemoglobin 11.8 g/dL (14.0-18.0); Lymphocyte % 6.8 %; Mean Corpuscular HGB Conc 34 g/dL (31-36); Mean Corpuscular Hemoglobin 31 pg (27-31); Mean Corpuscular Volume 91 fL (80-94); Mean Platelet Volume 8.2 fL (7.4-10.4); Platelet Count 207 10^3/uL (150-450); Red Blood Count 3.77 10^6 /uL (4.18-5.48); Red Cell Distribution Width 17 % (10-15); White Blood Count 4.5 10^3/uL (3.5-10.8)
[2021-09-15 05:52] LABS: INR 2.38 (0.86-1.15)
[2021-09-15] MEDS: NS 0.9% 1000 ml BAG 1,000 ML IV SCH (05:52)
[2021-09-15 06:04] LABS: Calcium 7.4 mg/dL (8.6-10.3); Magnesium 2.2 mg/dL (1.9-2.7); Potassium 3.8 mmol/L (3.5-5.0)
[2021-09-15] MEDS: SPIRIVA Respimat (tiotropium) 2.5 mcg/inh Inhaler INH SCH (08:50)
[2021-09-15] MEDS: Famotidine IV 10 MG/ML 2 ml VIAL (20 mg) IV SLOW PU SCH ×2 (09:31→19:36)
[2021-09-15] MEDS: Remdesivir 100 mg Vial 100 MG in NS 0.9% 250 ml 230 ML IV SCH (09:33)
[2021-09-15] MEDS: Aspirin EC 81 mg TAB.EC (enteric coated) PO SCH (09:34)
[2021-09-15] MEDS: Polyethylene Glycol 3350 17 GM PACKET PO SCH (09:42)
[2021-09-15] MEDS: Zinc Oxide 40% (TOPICAL) TUBE TOPICAL SCH (09:43)
[2021-09-15] MEDS: methylPREDNISolone SOD 40 mg/ml 1 ml VIAL IV SCH (11:50)
[2021-09-15] MEDS: HYDROcodone/ACETAMIN 5/325 mg TAB PO PRN ×2 (11:56→19:36)
[2021-09-16] MEDS: ZOSYN 3.375 GM Q8H per EXTENDED INFUSION IV SCH ×4 (00:11→23:50)
[2021-09-16] MEDS: SPIRIVA Respimat (tiotropium) 2.5 mcg/inh Inhaler INH SCH (08:35)
[2021-09-16] MEDS: Famotidine IV 10 MG/ML 2 ml VIAL (20 mg) IV SLOW PU SCH ×2 (09:44→22:17)
[2021-09-16] MEDS: Aspirin EC 81 mg TAB.EC (enteric coated) PO SCH (09:47)
[2021-09-16] MEDS: Polyethylene Glycol 3350 17 GM PACKET PO SCH (09:48)
[2021-09-16] MEDS: Remdesivir 100 mg Vial 100 MG in NS 0.9% 250 ml 230 ML IV SCH (09:48)
[2021-09-16] MEDS: Zinc Oxide 40% (TOPICAL) TUBE TOPICAL SCH (09:49)
[2021-09-16 10:01] LABS: INR 2.07 (0.86-1.15)
[2021-09-16 10:10] LABS: Albumin 2.4 g/dL (3.2-5.2); Albumin/Globulin Ratio 0.7 (1-3); Calcium 7.5 mg/dL (8.6-10.3); Globulin 3.4 g/dL (2-4); Potassium 3.9 mmol/L (3.5-5.0); Total Bilirubin 1.1 mg/dL (0.2-1.0); Total Protein 5.8 g/dL (6.4-8.9)
[2021-09-16] MEDS: HYDROcodone/ACETAMIN 5/325 mg TAB PO PRN ×2 (10:20→16:47)
[2021-09-16] MEDS ORDERED: Magnesium Sulfate IV 1GM/100ML 1 GM/100 ML BAG IV ONE (12:54)
[2021-09-16] MEDS: methylPREDNISolone SOD 40 mg/ml 1 ml VIAL IV SCH (13:13)
[2021-09-16 13:20] LABS: Magnesium 2.1 mg/dL (1.9-2.7)
[2021-09-16] MEDS: guaiFENesin 100 mg/5 ml LIQ unit dose cup PO PRN (16:39)
[2021-09-16] MEDS: D5LR 1000 ml BAG 1,000 ML IV SCH (19:57)
[2021-09-17 05:13] LABS: INR 2.17 (0.86-1.15)
[2021-09-17 05:18] LABS: Albumin 2.4 g/dL (3.2-5.2); Albumin/Globulin Ratio 0.8 (1-3); Calcium 7.2 mg/dL (8.6-10.3); Globulin 2.9 g/dL (2-4); Magnesium 2.2 mg/dL (1.9-2.7); Potassium 3.7 mmol/L (3.5-5.0); Total Protein 5.3 g/dL (6.4-8.9)
[2021-09-17] MEDS: KCL 20 MEQ/100 ML IVPREMIX 20 MEQ/100 ML BAG IV SCH ×2 (06:20→10:53)
[2021-09-17] MEDS: Remdesivir 100 mg Vial 100 MG in NS 0.9% 250 ml 230 ML IV SCH (08:05)
[2021-09-17] MEDS: guaiFENesin 100 mg/5 ml LIQ unit dose cup PO PRN (08:10)
[2021-09-17] MEDS: Aspirin EC 81 mg TAB.EC (enteric coated) PO SCH (08:12)
[2021-09-17] MEDS: HYDROcodone/ACETAMIN 5/325 mg TAB PO PRN ×2 (08:12→22:10)
[2021-09-17] MEDS: Famotidine IV 10 MG/ML 2 ml VIAL (20 mg) IV SLOW PU SCH ×2 (08:39→22:10)
[2021-09-17] MEDS: SPIRIVA Respimat (tiotropium) 2.5 mcg/inh Inhaler INH SCH (10:07)
[2021-09-17] MEDS: methylPREDNISolone SOD 40 mg/ml 1 ml VIAL IV SCH (10:49)
[2021-09-17] MEDS: Polyethylene Glycol 3350 17 GM PACKET PO SCH (10:50)
[2021-09-17] MEDS: Zinc Oxide 40% (TOPICAL) TUBE TOPICAL SCH (10:50)
[2021-09-17] MEDS: ZOSYN 3.375 GM Q8H per EXTENDED INFUSION IV SCH (10:58)
[2021-09-17] MEDS: Morphine 2 MG/ML SYRINGE IV PRN (14:38)
[2021-09-17] MEDS: Piperacillin/Tazobac ADVAN 3.375 GM in NS 0.9% 100 ml BAG 100 ML IV SCH (17:35)
[2021-09-18] MEDS: D5LR 1000 ml BAG 1,000 ML IV SCH (01:18)
[2021-09-18] MEDS: Piperacillin/Tazobac ADVAN 3.375 GM in NS 0.9% 100 ml BAG 100 ML IV SCH ×3 (01:18→18:01)
[2021-09-18] MEDS: SPIRIVA Respimat (tiotropium) 2.5 mcg/inh Inhaler INH SCH (07:56)
[2021-09-18 09:36] LABS: INR 1.92 (0.86-1.15)
[2021-09-18] MEDS: Famotidine IV 10 MG/ML 2 ml VIAL (20 mg) IV SLOW PU SCH ×2 (09:39→20:45)
[2021-09-18] MEDS: methylPREDNISolone SOD 40 mg/ml 1 ml VIAL IV SCH (09:39)
[2021-09-18 09:46] LABS: Albumin 2.5 g/dL (3.2-5.2); Albumin/Globulin Ratio 0.7 (1-3); Calcium 7.8 mg/dL (8.6-10.3); Globulin 3.5 g/dL (2-4); Potassium 3.7 mmol/L (3.5-5.0); Total Bilirubin 1.3 mg/dL (0.2-1.0)
[2021-09-18] MEDS: Remdesivir 100 mg Vial 100 MG in NS 0.9% 250 ml 230 ML IV SCH (10:30)
[2021-09-18] MEDS: Morphine 2 MG/ML SYRINGE IV PRN (10:30)
[2021-09-18] MEDS: Aspirin EC 81 mg TAB.EC (enteric coated) PO SCH (11:37)
[2021-09-18] MEDS: Zinc Oxide 40% (TOPICAL) TUBE TOPICAL SCH (11:37)
[2021-09-18] MEDS: Polyethylene Glycol 3350 17 GM PACKET PO SCH (11:37)
[2021-09-18] MEDS ORDERED: D5LR 1000 ml BAG 1,000 ML IV SCH (16:10)
[2021-09-18 21:13] VITALS: BP 116/73
== END 2021-09-19 00:15 | disposition expired | DRG 177 ==
LOC: MED 15:35 → SUATTDRO 15:35 → MED 09-15 21:47
PROVIDERS: ADMIT Internal Medicine; ATTEND Internal Medicine